=== PATIENT | male | born 1975 | race Caucasian/White ===

== ENCOUNTER 2017-01-18 14:36 | Emergency (ER) | payer OTHER | END 2017-01-18 15:15 | disposition home or self-care (01) | LOC: SCSER 14:36 | DX: H61.891 Other specified disorders of right external ear (principal); F17.210 Nicotine dependence, cigarettes, uncomplicated | CPT/HCPCS: 99282 ==

== ENCOUNTER 2018-03-29 10:36 | Emergency (ER) | payer OTHER ==
[2018-03-29] MEDS ORDERED: Ibuprofen 800 MG TAB ONE (11:00)
--- NOTE | 2018-03-29 11:39 | RAD ---
PORTABLE CHEST: Date: 03-29-18 Provided Clinical History: Cough. FINDINGS: Cardiac and mediastinal silhouette is within normal limits. There is blunting of the right costophren ic angle that may reflect right pleural fluid. No focal consolidation or pneumothorax apparent. IMPRESSION: Blunting of the right costophrenic angle, which may reflect pleural fluid. Recommend correlation with a lateral view. POS: [facility]
== END 2018-03-29 12:01 | disposition home or self-care (01) ==
LOC: SCSER 10:36
DX: J10.1 Influenza due to other identified influenza virus with other respiratory manifestations (principal); F17.210 Nicotine dependence, cigarettes, uncomplicated; Z79.899 Other long term (current) drug therapy
CPT/HCPCS: 71045; 87804

== ENCOUNTER 2018-05-11 08:00 | Emergency (ER) | payer OTHER ==
--- NOTE | 2018-05-11 09:01 | RAD ---
3 VIEWS LEFT SHOULDER: Date: 05/11/18 AP, internally, externally, and scapular Y views of left shoulder obtained. HISTORY: Injury, left shoulder pain. FINDINGS: Three views of the left shoulder demonstrate no evidence of left shoulder fractures, subluxations, or bony lesions. IMPRESSION: Normal 3 views left shoulder. POS: [facility]
== END 2018-05-11 09:26 | disposition home or self-care (01) ==
LOC: SCSER 08:00
DX: M54.12 Radiculopathy, cervical region (principal); F17.210 Nicotine dependence, cigarettes, uncomplicated; Z79.899 Other long term (current) drug therapy